=== PATIENT | female | born 1940 | race Caucasian/White ===

== ENCOUNTER → 2018-05-17 11:39 | Outpatient (CLI) | payer MEDICARE, SELFPAY ==
[2018-05-17 12:37] LABS: Add Manual Diff / Slide Review NO; Basophils Percent Auto 0.5 % (0-2); Eosinophils Percent Auto 0.3 % (2-4); Hematocrit 35.1 % (36-46); Hemoglobin 12.1 g/dL (12.0-16.0); Mean Corpuscular HGB Conc 34.5 % (30-36); Mean Corpuscular Hemoglobin 39.7 PG (26-34); Mean Corpuscular Volume 114.9 fL (80-100); Monocytes Percent Auto 6.6 % (3-14); Neutrophils Absolute Auto 3100 /uL (3000-5900); Neutrophils Percent Auto 74.6 % (50-75); Platelet Count 239 X10^3/uL (150-400); Red Blood Cell Count 3.06 X10^6/uL (4.0-5.2); Red Cell Distribution Width 15.2 % (11.6-14.8); White Blood Cell Count 4.1 X10^3/uL (4.5-11.0)
[2018-05-17 12:41] LABS: Reticulocyte Count, Percent 0.6 % (1.06-2.63)
[2018-05-17 12:55] LABS: HEMOLYSIS < 15 (0-50); Iron 120 ug/dL (37-170)
[2018-05-17 12:57] LABS: Alanine Aminotransferase 58 IU/L (9-52); Albumin 3.3 g/dL (3.5-5.0); Albumin Globulin Ratio 1.1 (1.0-2.8); Alkaline Phosphatase 130 U/L (38-126); Aspartate Aminotransferase 49 IU/L (14-36); BUN Creatinine Ratio 15.8 (6-22); Bilirubin Total 1.1 mg/dL (0.2-1.3); Blood Urea Nitrogen 19 mg/dL (7-17); Calcium 9.1 mg/dL (8.4-10.2); Carbon Dioxide 20 mmol/L (22-32); Chloride 100 mmol/L (98-107); Estimated Glomerular Filt Rate 43.2 mL/min (>60); Glucose 113 mg/dL (80-110); HEMOLYSIS < 15 (0-50); Potassium 4.5 mmol/L (3.4-5.1); Sodium 135 mmol/L (137-145); Total Protein 6.3 g/dL (6.3-8.2)
[2018-05-17 13:06] LABS: Macrocytosis 2+
[2018-05-17 13:07] LABS: Percent Iron Saturation 75 % (15-50); Total Iron Binding Capacity 159 ug/dL (265-497); Transferrin 120 mg/dL (206-381)
[2018-05-17 13:25] LABS: Thyroid Stimulating Hormone 2.63 uIU/mL (0.47-4.68)
[2018-05-17 14:00] LABS: Folate > 20.0 ng/mL (2.76-20.0); Vitamin B12 > 1000 pg/mL (239-931)
== END ==
PROVIDERS: PCP Family Medicine; Visit Provider Internal Medicine
DX: F10.20 Alcohol dependence, uncomplicated (principal)
CPT/HCPCS: 36415; 80053; 81003; 82607; 82746; 83540; 83550; 84443; 85025; 85045

== ENCOUNTER → 2018-05-24 14:04 | Outpatient (CLI) | payer MEDICARE, SELFPAY ==
--- NOTE | 2018-05-24 14:07 | DI.US.S_ITS ---
PROCEDURE: US ABDOMEN COMPLETE INDICATIONS: elevated LFT's TECHNIQUE: Real-time scanning was performed of the abdominal and retroperitoneal organs, with image documentation. COMPARISON: [facility], CT, ABDOMEN/PELVIS WITH CONTRAST, 03/28/2017, 9:47. FINDINGS: Liver: Liver is normal in size and homogeneous in echotexture. Gallbladder: The gallbladder contains innumerable bright reflectors appear to float within an area of probable sludge. No calcified gallstones are evident on prior CT imaging. No acoustical shadowing is demonstrated. Wall thickness is normal. Biliary ducts: Intrahepatic bile ducts are non-dilated. Extrahepatic bile duct is obscured by bowel gas. Pancreas: Pancreas is obscured by bowel gas Spleen: Spleen is obscured by bowel gas Kidneys: The left kidney is obscured by bowel gas. Right kidney measures 8.5 cm long; . No right hydronephrosis or nephrolithiasis. No solid masses. Aorta: Proximal aorta is obscured by bowel gas. Visualized aorta is normal in caliber at less than 3 cm. Iliacs: Iliac vessels are obscured by bowel gas. IVC: Nonvisualized Miscellaneous: No free abdominal fluid. IMPRESSION: 1. Exam is severely limited secondary to excessive bowel gas as noted above. 2. Abnormal gallbladder, probable sludge ball with gravel but indeterminate. No evidence of acute cholecystitis. Nuclear HIDA scan with CCK might be considered. Dictated by: Daljit Rodriguez M.D. on 05/24/2018 at 15:35 Approved by: Daljit Rodriguez M.D. on 05/24/2018 at 15:45
== END ==
PROVIDERS: Visit Provider Internal Medicine
DX: R94.5 Abnormal results of liver function studies (principal); R93.2 Abnormal findings on diagnostic imaging of liver and biliary tract
CPT/HCPCS: 76700